=== PATIENT | female | born 1995 | race Caucasian/White ===

== ENCOUNTER 2021-03-08 21:05 | Emergency (ER) | payer MEDICAID ==
[~2021-03-08] VITALS: Ht 160 cm; Wt 53.0 kg
[2021-03-08 21:08] VITALS: BP 151/90
[2021-03-08] MEDS ORDERED: ALBU6.7H15 INH (21:45)
[2021-03-08] MEDS ORDERED: ATROV3 BOTHNSTRLS (21:46)
== END 2021-03-08 22:15 | disposition home or self-care (01) ==
LOC: ER 21:05
DX: J45.901 Unspecified asthma with (acute) exacerbation (principal)
CPT/HCPCS: 99283